=== PATIENT | female | born 1940 | race Caucasian/White ===

== ENCOUNTER 2016-05-21 13:03 | Inpatient (IN) | payer MEDICARE, OTHER | END 2016-05-24 17:35 | disposition swing bed (61) | DRG 603 | LOC: MED 13:03 → SWI 13:03 → MED 13:03 → SWI 05-24 17:35 → MED 05-24 17:35 | PROVIDERS: ADMIT Internal Medicine | DX: L03.116 Cellulitis of left lower limb (principal); L97.221 Non-pressure chronic ulcer of left calf limited to breakdown of skin; I87.2 Venous insufficiency (chronic) (peripheral); H10.9 Unspecified conjunctivitis; I10 Essential (primary) hypertension; G47.30 Sleep apnea, unspecified; L40.9 Psoriasis, unspecified; I25.10 Atherosclerotic heart disease of native coronary artery without angina pectoris; Z85.110 Personal history of malignant carcinoid tumor of bronchus and lung; M81.0 Age-related osteoporosis without current pathological fracture; H40.9 Unspecified glaucoma; K21.9 Gastro-esophageal reflux disease without esophagitis; E05.00 Thyrotoxicosis with diffuse goiter without thyrotoxic crisis or storm; M48.06 Spinal stenosis, lumbar region; J45.909 Unspecified asthma, uncomplicated; R60.0 Localized edema; Z79.899 Other long term (current) drug therapy; Z88.0 Allergy status to penicillin; Z88.8 Allergy status to other drugs, medicaments and biological substances; Z88.1 Allergy status to other antibiotic agents; Z91.041 Radiographic dye allergy status; Z80.0 Family history of malignant neoplasm of digestive organs; Z80.3 Family history of malignant neoplasm of breast; Z82.49 Family history of ischemic heart disease and other diseases of the circulatory system | CPT/HCPCS: J1650; J3370; J7050 ==

== ENCOUNTER 2016-05-24 17:37 | Inpatient (IN) | payer MEDICARE, OTHER | END 2016-05-28 08:44 | disposition admitted as inpatient to this hospital (09) | DRG 603 | LOC: SWI 17:37 | PROVIDERS: ADMIT Internal Medicine | DX: L03.116 Cellulitis of left lower limb (principal); T17.818A Gastric contents in other parts of respiratory tract causing other injury, initial encounter; B96.1 Klebsiella pneumoniae [K. pneumoniae] as the cause of diseases classified elsewhere; B96.4 Proteus (mirabilis) (morganii) as the cause of diseases classified elsewhere; B96.89 Other specified bacterial agents as the cause of diseases classified elsewhere; I95.9 Hypotension, unspecified; R09.02 Hypoxemia; E86.9 Volume depletion, unspecified; T50.2X5A Adverse effect of carbonic-anhydrase inhibitors, benzothiadiazides and other diuretics, initial encounter; I87.2 Venous insufficiency (chronic) (peripheral); I10 Essential (primary) hypertension; G47.30 Sleep apnea, unspecified; L40.9 Psoriasis, unspecified; I25.10 Atherosclerotic heart disease of native coronary artery without angina pectoris; Z85.110 Personal history of malignant carcinoid tumor of bronchus and lung; M81.0 Age-related osteoporosis without current pathological fracture; H40.9 Unspecified glaucoma; K21.9 Gastro-esophageal reflux disease without esophagitis; E05.00 Thyrotoxicosis with diffuse goiter without thyrotoxic crisis or storm; M48.06 Spinal stenosis, lumbar region; J45.909 Unspecified asthma, uncomplicated; R60.9 Edema, unspecified; Z79.899 Other long term (current) drug therapy; Z88.0 Allergy status to penicillin; Z88.8 Allergy status to other drugs, medicaments and biological substances; Z88.1 Allergy status to other antibiotic agents; Z91.041 Radiographic dye allergy status; Z80.0 Family history of malignant neoplasm of digestive organs; Z80.3 Family history of malignant neoplasm of breast; Z82.49 Family history of ischemic heart disease and other diseases of the circulatory system; N28.9 Disorder of kidney and ureter, unspecified; R06.00 Dyspnea, unspecified | CPT/HCPCS: J1650; J3370; J7040; J7050 ==

== ENCOUNTER 2016-05-28 08:45 | Inpatient (IN) | payer MEDICARE, OTHER ==
--- NOTE | 2016-05-29 09:25 | NUR ---
PATIENT EXITED ICU VIA W/C ACCOMPANIED BY RN AND RETAIL PARTS PRO IN NO ACUTE DISTRESS TO HAVE A BARIUM SWALLOW COMPLETED.
--- NOTE | 2016-05-29 09:57 | NUR ---
PATIENT RETURNED TO THE ICU VIA W/C ACCOMPANIED BY RN AND STERILE PROCESS COORDINATOR IN NO ACUTE DISTRESS AFTER HAVING A BARIUM SWALLOW COMPLETED.
--- NOTE | 2016-05-29 10:20 | NUR ---
ECHO BEING PERFORMED AT BEDSIDE AT THIS TIME
--- NOTE | 2016-05-30 15:10 | NUR ---
REPORT GIVEN TO MARIANO ELIZABETH RN AND ALL QUESTIONS ANSWERED. PATIENT AWARE THAT SHE IS GOING TO BE MOVING TO ROOM 316 AND ALL OF HER BELONGINGS WERE PACKED UP AND PREPARED TO BE MOVED UP TO 3RD FLOOR.
--- NOTE | 2016-05-30 15:30 | NUR ---
PATIENT EXITED ICU VIA W/C ACCOMPANIED BY 2 NURSING ASSISTANTS IN NO ACUTE DISTRESS. ALL OF HER BELONGINGS WERE TAKEN WITH HER AND REPORT ALREADY CALLED TO MARIANO ELIZABETH RN ON 3RD FLOOR.
--- NOTE | 2016-05-30 18:28 | NUR ---
1510: REPORT RECEIVED FROM ROXIE-FLOW SPECIALIST 1538: PT TO [facility] ROOM 316 ACCOMPAINED BT STAFF, PT STABLE AT TIME OF OF TRANSFER, AM IN AGREEMENT WITH PREVIOUS ASSESSMESNT, WILL CONTINUE TO MONITOR
[2016-06-04] MEDS ORDERED: SYNTHROID50 MCG PO (15:11)
[2016-06-04] MEDS ORDERED: LOVASTATIN40 MG PO (15:11)
[2016-06-04] MEDS ORDERED: B-121000 MCG PO (15:12)
[2016-06-04] MEDS ORDERED: [UNRECOGNIZED DRUG - OTHER] PO (15:13)
[2016-06-04] MEDS ORDERED: ALLEGRA ALLERG180 MG PO (15:13)
[2016-06-04] MEDS ORDERED: TRIAMCINOLONE A80 G2 TOP (15:14)
[2016-06-04] MEDS ORDERED: BACTRIM DS TAB1 EACH PO (15:14)
[2016-06-04] MEDS ORDERED: CULTURELLE1 EACH PO (15:14)
[2016-06-04] MEDS ORDERED: SIMBRINZA 1%-0.28 ML OU (15:15)
== END 2016-06-04 13:55 | disposition home health service (06) | DRG 315 ==
LOC: MED 08:45 → ICU 08:45 → MED 05-30 15:54
PROVIDERS: ADMIT Internal Medicine
DX: I95.9 Hypotension, unspecified (principal); T17.818A Gastric contents in other parts of respiratory tract causing other injury, initial encounter; L03.116 Cellulitis of left lower limb; I45.89 Other specified conduction disorders; R09.02 Hypoxemia; R00.1 Bradycardia, unspecified; L27.0 Generalized skin eruption due to drugs and medicaments taken internally; T36.1X5A Adverse effect of cephalosporins and other beta-lactam antibiotics, initial encounter; R60.9 Edema, unspecified; I87.2 Venous insufficiency (chronic) (peripheral); L40.9 Psoriasis, unspecified; E78.5 Hyperlipidemia, unspecified; I25.10 Atherosclerotic heart disease of native coronary artery without angina pectoris; Z85.110 Personal history of malignant carcinoid tumor of bronchus and lung; M81.0 Age-related osteoporosis without current pathological fracture; H40.9 Unspecified glaucoma; K21.9 Gastro-esophageal reflux disease without esophagitis; E05.00 Thyrotoxicosis with diffuse goiter without thyrotoxic crisis or storm; M48.06 Spinal stenosis, lumbar region; J45.909 Unspecified asthma, uncomplicated; Z79.899 Other long term (current) drug therapy; Z88.1 Allergy status to other antibiotic agents; Z88.0 Allergy status to penicillin; Z80.0 Family history of malignant neoplasm of digestive organs; Z80.3 Family history of malignant neoplasm of breast; Z82.49 Family history of ischemic heart disease and other diseases of the circulatory system; E86.9 Volume depletion, unspecified; I11.9 Hypertensive heart disease without heart failure; I27.2 Other secondary pulmonary hypertension; M13.0 Polyarthritis, unspecified; G89.4 Chronic pain syndrome; N28.9 Disorder of kidney and ureter, unspecified; G47.33 Obstructive sleep apnea (adult) (pediatric)
CPT/HCPCS: 92611; 93306; 97161-GP; J1650; J7050